=== PATIENT | female | born 1975 | race Caucasian/White ===

== ENCOUNTER 2018-08-09 12:43 | Emergency (ER) | payer BC, MEDICAID, OTHER, SELFPAY ==
[~2018-08-09] VITALS: Ht 157.5 cm; Wt 61.4 kg
[~2018-08-09 12:43] MED LIST: ATEN25TA PO; CELE20TA PO; CLON0.5T PO; IBUP600T26 PO; LYRI150C PO; MAXA5TAB10 PO; TIZA4CAP PO; TRAM300T4 PO; TRAM50TA2 PO
[2018-08-09] MEDS ORDERED: NS 1,000 ML IV SCH (12:56)
[2018-08-09] MEDS ORDERED: GABA600T4 PO (12:58)
[2018-08-09] MEDS ORDERED: DULO1CAP3 PO (12:58)
[2018-08-09] MEDS ORDERED: CLON0.5T8 PO (12:58)
[2018-08-09] MEDS ORDERED: LOSA100T50 PO (12:58)
[2018-08-09] MEDS ORDERED: TIZA4TAB4 PO (12:58)
[2018-08-09 13:27] LABS: BASO % 0.4 % (0.0-1.0); EOS % 0.1 % (0.0-3.0); HEMATOCRIT 39.6 % (36.0-47.0); HEMOGLOBIN 13.9 g/dl (12.0-15.5); LYMPH # 1.1 10^3/uL (1.5-4.5); LYMPH % 15.2 % (24.0-44.0); MEAN CORPUSCULAR HEMOGLOBIN 29.6 pg (27.0-33.0); MEAN CORPUSCULAR HGB CONC 35.1 g/dl (32.0-36.5); MEAN CORPUSCULAR VOLUME 84.4 fl (80.0-96.0); MONO # 0.3 10^3/uL (0.0-0.8); MONO % 4.2 % (0.0-5.0); NEUTROPHILS # 5.5 10^3/uL (1.8-7.7); NEUTROPHILS % 79.7 % (36.0-66.0); PLATELET COUNT, AUTOMATED 223 10^3/uL (150-450); RED BLOOD COUNT 4.69 10^6/uL (4.00-5.40); WHITE BLOOD COUNT 6.9 10^3/uL (4.0-10.0)
[2018-08-09 13:50] LABS: HCG, SERUM QUALITATIVE NEGATIVE (NEGATIVE)
[2018-08-09 14:00] LABS: ACETAMINOPHEN LEVEL < 2.0 UG/ML (10.0-30.0); ALBUMIN 4.1 GM/DL (3.2-5.2); ALT/SGPT 40 U/L (12-78); BILIRUBIN,DIRECT 0.2 MG/DL (0.0-0.2); BILIRUBIN,TOTAL 0.4 MG/DL (0.2-1.0); BLOOD UREA NITROGEN 10 MG/DL (7-18); CALCIUM LEVEL 8.9 MG/DL (8.5-10.1); CARBON DIOXIDE LEVEL 25 MEQ/L (21-32); CHLORIDE LEVEL 104 MEQ/L (98-107); CPK CREATINE PHOSPHOKINASE 91 U/L (26-192); CREATININE FOR GFR 0.71 MG/DL (0.55-1.30); ETHYL ALCOHOL (ETHANOL) 0.072 % (0.000-0.010); GLOMERULAR FILTRATION RATE > 60.0 (>58); GLUCOSE, FASTING 100 MG/DL (70-100); POTASSIUM SERUM 3.5 MEQ/L (3.5-5.1); SALICYLATE LEVEL 2.8 MG/DL (5.0-30.0); SODIUM LEVEL 138 MEQ/L (136-145); THYROID STIMULATING HORMONE 0.393 uIU/ML (0.358-3.740); TOTAL PROTEIN 7.7 GM/DL (6.4-8.2)
[2018-08-09 14:05] LABS: OSMOLALITY SERUM 303 MOSM/KG (275-295)
--- NOTE | 2018-08-09 16:23 | ECGEPIP ---
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
== END 2018-08-09 15:18 | disposition left against medical advice (07) ==
LOC: M ED 12:43
DX: F41.9 Anxiety disorder, unspecified (principal); I10 Essential (primary) hypertension; M79.7 Fibromyalgia; G43.909 Migraine, unspecified, not intractable, without status migrainosus; Z72.0 Tobacco use; Z79.899 Other long term (current) drug therapy; Z88.1 Allergy status to other antibiotic agents; Z53.21 Procedure and treatment not carried out due to patient leaving prior to being seen by health care provider
CPT/HCPCS: 80048; 80076; 82550; 83605; 83930; 84443; 84703; 85025; 93005; 93041; 94760; 99284; G0480

== ENCOUNTER 2019-06-26 12:02 | Observation (INO) | payer OTHER, SELFPAY ==
[~2019-06-26 12:02] MED LIST changes: +CLON0.5T2 PO; +DULO1CAP6 PO; +GABA600T4 PO; +LOSA100T50 PO; +TIZA4TAB4 PO
[2019-06-26] MEDS ORDERED: NS 1,000 ML IV SCH (12:16)
[2019-06-26] MEDS ORDERED: LIDOCAINE 2% 5ML JELLY UROJET TOP ONE (12:30)
[2019-06-26 12:35] LABS: BASO % 0.2 % (0.0-1.0); EOS % 0.5 % (0.0-3.0); HEMATOCRIT 38.3 % (36.0-47.0); HEMOGLOBIN 13.3 g/dl (12.0-15.5); LYMPH # 0.9 10^3/uL (1.5-5.0); LYMPH % 19.9 % (24.0-44.0); MEAN CORPUSCULAR HEMOGLOBIN 30.4 pg (27.0-33.0); MEAN CORPUSCULAR HGB CONC 34.7 g/dl (32.0-36.5); MEAN CORPUSCULAR VOLUME 87.6 fl (80.0-96.0); MONO # 0.3 10^3/uL (0.0-0.8); MONO % 7.5 % (0.0-5.0); NEUTROPHILS # 3.2 10^3/uL (1.5-8.5); NEUTROPHILS % 71.7 % (36.0-66.0); PLATELET COUNT, AUTOMATED 183 10^3/uL (150-450); RED BLOOD COUNT 4.37 10^6/uL (4.00-5.40); WHITE BLOOD COUNT 4.4 10^3/uL (4.0-10.0)
[2019-06-26 13:05] LABS: ACETAMINOPHEN LEVEL < 2.0 UG/ML (10.0-30.0); ALBUMIN 3.7 GM/DL (3.2-5.2); ALT/SGPT 32 U/L (12-78); BILIRUBIN,DIRECT 0.1 MG/DL (0.0-0.2); BILIRUBIN,TOTAL 0.3 MG/DL (0.2-1.0); BLOOD UREA NITROGEN 9 MG/DL (7-18); CALCIUM LEVEL 9.1 MG/DL (8.5-10.1); CARBON DIOXIDE LEVEL 26 MEQ/L (21-32); CHLORIDE LEVEL 109 MEQ/L (98-107); CK-MB VALUE MASS < 1.0 NG/ML (<3.6); CPK CREATINE PHOSPHOKINASE 47 U/L (26-192); CREATININE FOR GFR 0.73 MG/DL (0.55-1.30); ETHYL ALCOHOL (ETHANOL) < 0.003 % (0.000-0.010); GLOMERULAR FILTRATION RATE > 60.0 (>58); GLUCOSE, FASTING 112 MG/DL (70-100); MB/CK RELATIVE INDEX 2.13 (< OR =4); SALICYLATE LEVEL 3.3 MG/DL (5.0-30.0); SODIUM LEVEL 142 MEQ/L (136-145); THYROID STIMULATING HORMONE 0.435 uIU/ML (0.358-3.740); TROPONIN I < 0.02 NG/ML (< 0.10)
[2019-06-26 13:13] LABS: AMPHETAMINES LEVEL URINE POSITIVE (NEGATIVE); BARBITURATES URINE NEGATIVE (NEGATIVE); BENZODIAZEPINES URINE NEGATIVE (NEGATIVE); CANNABINOIDS URINE NEGATIVE (NEGATIVE); COCAINE METABOLITE URINE POSITIVE (NEGATIVE); METHADONE URINE NEGATIVE (NEGATIVE); OPIATES URINE POSITIVE (NEGATIVE); PHENCYCLIDINE URINE NEGATIVE (NEGATIVE)
--- NOTE | 2019-06-26 13:22 | REP ---
Head CT without contrast: History: Altered mental status. Comparison study: No comparison study. CT findings: Bone window settings demonstrate an intact bony calvarium. There is no evidence of skull fracture or incidental bony calvarial lesion. The visualized paranasal sinuses appear clear. No intraorbital abnormality is seen. On soft tissue window setting images; the lateral, third, and fourth ventricles are normal in size and position. Kaiser-white differentiation pattern is normal above and below the tentorium. There are is no evidence of intracranial hemorrhage. No mass, edema, infarction, or midline shift is seen. No extra-axial fluid collection is appreciated. Impression: Negative noncontrast head CT. Electronically Signed by Madi Francois MD 06/26/2019 01:13 P
[2019-06-26] MEDS ORDERED: RIZA10TA2 PO (13:35)
[2019-06-26] MEDS ORDERED: ROPI0.5T3 PO (13:35)
[2019-06-26] MEDS ORDERED: ATEN50TA2 PO (13:35)
--- NOTE | 2019-06-26 15:14 | REP ---
CHEST, SINGLE VIEW: There is no evidence of acute infiltrate. No pleural effusion is seen. The heart is normal in size. The mediastinal silhouette is unremarkable. The visualized osseous structures are intact. IMPRESSION: No acute pulmonary disease. Electronically Signed by Tristian Kaiser MD 06/26/2019 03:24 P
[2019-06-26] MEDS ORDERED: hydrALAZINE 20MG/ML 1ML VIAL (J0360 PER 20MG) IV PRN (15:30)
[2019-06-26] MEDS ORDERED: ACETAMINOPHEN TAB 650MG DOSE (2X325MG) PO PRN (15:30)
[2019-06-26] MEDS ORDERED: RIZATRIPTAN BENZOATE 10 MG TAB PO PRN (15:30)
[2019-06-26] MEDS ORDERED: traMADol 50 MG TAB PO PRN (15:30)
[2019-06-26] MEDS ORDERED: clonazePAM 0.5 MG TAB PO PRN (15:30)
--- NOTE | 2019-06-26 15:39 | HPEPDOC ---
General Date of Admission Date of Service: Jun 26, 2019 Chief Complaint The patient is a 44-year-old female admitted with a reason for visit of Neuro Symptoms. Source: Other (boyfriend) Exam Limitations: Other (, not responding to verbal stimuli) Timing/Duration: Other (since this morning) Severity: Other (, unknown) Associated Symptoms: Other (none) History of Present Illness 44 years old white female with past medical history of migraine headache, hypertension, fibromyalgia, anxiety disorder, endometriosis, depression, pneumonia, was found by her boyfriend at 9:30 laying on her living room. Patient was ambulatory after worse when EMS got there in her home and she was minimally were barely responsive. EMS but when I went to interview patient, she does not respond to vocal stimuli even though she did respond to ED, PA on his exam. History was obtained from patient's old records, patient boyfriend emergency room PA and staff. Patient is clinically stable in no apparent cardiopulmonary distress Home Medications Scheduled Atenolol (Atenolol) 50 Mg Tablet, 50 MG PO DAILY, (Reported) Duloxetine Hcl (Duloxetine HCl) 60 Mg Capsule.dr, 60 MG PO DAILY, (Reported) Gabapentin (Gabapentin) 600 Mg Tablet, 600 MG PO TID, (Reported) Ropinirole HCl (Ropinirole HCl) 0.5 Mg Tablet, 0.5 MG PO QHS, (Reported) Tizanidine HCl (Tizanidine HCl) 4 Mg Tablet, 4 MG PO TID, (Reported) Scheduled PRN Clonazepam (Clonazepam) 0.5 Mg Tablet, 1 TAB PO DAILY PRN for ANXIETY, (Reported) Rizatriptan Benzoate (Rizatriptan) 10 Mg Tablet, 1 TAB PO DAILY PRN for MIGRAINE, (Reported) Tramadol HCl (Tramadol HCl) 50 Mg Tab, 50 MG PO DAILY PRN for BACK PAIN, (Reported) Allergies Coded Allergies: celecoxib (Verified Allergy, Unknown, SOB , 08/09/18) Past Medical History Medical History Migraine headache, hypertension, fibromyalgia, anxiety disorder, depression, endometriosis, pneumonia Surgical History Laparoscopy uterine abrasion Family History Father with anxiety, hypertension, Parkinson's disease. Mother with fibromyalgia and hypertension and hypothyroid Social History * Smoker: current smoker Alcohol: other (, unknown) Drugs: other (boyfriend. Denies) A-FIB/CHADSVASC A-FIB History Current/History of A-Fib/PAF?: No Review of Systems Constitutional: Reports: Other (unable to obtained review of systems , secondary to patient's medical and mental status) Physical Examination General Exam: Positive: Other (not response to vocal stimuli, only responds to pain.) Eye Exam: Positive: PERRLA ENT Exam: Positive: Atraumatic, Mucous membr. moist/pink Neck Exam: Positive: Supple Chest Exam: Positive: Clear to auscultation, Normal air movement Heart Exam: Positive: Rate Normal, Normal S1, Normal S2 Abdomen Exam: Positive: Normal bowel sounds, Soft Extremity Exam: Positive: Normal pulses Skin Exam: Positive: Nl turgor and temperature Neuro Exam: Positive: Other (unable to do neuro exam) Psych Exam: Positive: Other (unable to do psych exam) Vital Signs Vital Signs Date Time Temp Pulse Resp B/P (MAP) Pulse Ox O2 Delivery O2 Flow Rate FiO2 06/26/19 15:00 97.0 62 18 111/60 (77) 95 Room Air Laboratory Data Labs 24H Laboratory Tests 2 06/26/19 12:15: Immature Granulocyte % (Auto) 0.2, Neutrophils (%) (Auto) 71.7H, Lymphocytes (%) (Auto) 19.9L, Monocytes (%) (Auto) 7.5H, Eosinophils (%) (Auto) 0.5, Basophils (%) (Auto) 0.2, Neutrophils # (Auto) 3.2, Lymphocytes # (Auto) 0.9L, Monocytes # (Auto) 0.3, Eosinophils # (Auto) 0.0, Basophils # (Auto) 0.0, Nucleated Red Blood Cells % (auto) 0.0, Anion Gap 7L, Glomerular Filtration Rate > 60.0, Lactic Acid Level 0.9, Calcium Level 9.1, Total Bilirubin 0.3, Direct Bilirubin 0.1, Aspartate Amino Transf (AST/SGOT) 19, Alanine Aminotransferase (ALT/SGPT) 32, Alkaline Phosphatase 72, Ammonia < 10, Total Creatine Kinase 47, Creatine Kinase MB < 1.0, Creatine Kinase MB Relative Index 2.13, Troponin I < 0.02, Tot al Protein 7.0, Albumin 3.7, Albumin/Globulin Ratio 1.12, Thyroid Stimulating Hormone (TSH) 0.435, Salicylates Level 3.3L, Acetaminophen Level < 2.0L, Ethyl Alcohol Level < 0.003 06/26/19 12:32: Urine Color YELLOW, Urine Appearance HAZY, Urine pH 5.0, Urine Specific [place] 1.025, Urine Protein NEGATIVE, Urine Glucose (UA) NEGATIVE, Urine Ketones TRACEH, Urine Blood 1+H, Urine Nitrite NEGATIVE, Urine Bilirubin NEGATIVE, Urine Urobilinogen 0.2, Urine Leukocyte Esterase NEGATIVE, Urine WBC (Auto) 3, Urine RBC (Auto) 11H, Urine Hyaline Casts (Auto) 0, Urine Bacteria (Auto) NEGATIVE, Urine Squamous Epithelial Cells 5, Urine Mucus (Auto) LARGE, Urine Sperm (Auto) , Urine Opiates Screen POSITIVEH, Urine Methadone Screen NEGATIVE, Urine Barbiturates Screen NEGATIVE, Urine Phencyclidine Screen NEGATIVE, Urine Amphetamines Screen POSITIVEH, Urine Benzodiazepines Screen NEGATIVE, Urine Cocaine Metabolite Screen POSITIVEH, Urine Cannabinoids Screen NEGATIVE CBC/BMP Laboratory Tests 06/26/19 12:15 Problems (1) Altered mental state Status: Acute Problem Text: 44 years old white female with a history of multiple psych ailments along with hypertension, back pain, migraine headache, frequent visits to ED with a psych complaints presented with altered mental status today. Patient has a variable clinical course. She hasn't spoken with the EMS and ED, PA, but she did not speak to me on local stimuli and at home. She was also found by EMS. She was ambulating Patient's vital signs are stable except blood pressure is 191/103, urine analysis is negative. Urine tox shows positive for opiates, amphetamine and cocaine CT of the brain is essentially negative. Chest x-ray is negative. CBC, CMP are normal Patient's altered mental status most likely secondary to polysubstance abuse versus malingering for secondary gain Admit patient to PCU for close observation property assessment monitor IV fluid normal saline 100 mL per hour Seizure precautions Neuro check every 4 hours for 24 hours Repeat labs in a.m. Nothing by mouth Continue home meds Will reevaluate patient in them a.m. and if anything was further neurological workup needed. We will order then Discussed with boyfriend at home. Patient's prognosis and management was explained to (2) Hypertensive urgency Status: Acute Problem Text: Most likely secondary to polysubstance abuse, which include opiates, amphetamine and cocaine Will request EKG, troponins 3 Continue by mouth home meds Hydralazine 10 mg IV every 6 hours when necessary for systolic blood pressure mo re than 150 Continue home meds (3) Drug abuse Status: Acute Problem Text: Patient's boyfriend was surprised that she uses any drugs, but urine tox is positive for opiate, amphetamine and cocaine Will ip counsel patient about drug abuse, but she is awake, alert and oriented 3 Plan / VTE VTE Prophylaxis Ordered?: Yes MYLENE PEREZ MD Jun 26, 2019 15:39
[2019-06-26 16:45] VITALS: BP 161/69
[2019-06-26] MEDS: NS 1,000 ML IV SCH (17:43)
[2019-06-26] MEDS: GABAPENTIN 300 MG CAP PO SCH ×2 (17:44→20:06)
[2019-06-26] MEDS: tiZANidine 4 MG TAB PO SCH ×2 (17:44→20:06)
[2019-06-26] MEDS: DULoxetine 30 MG CAP (CYMBALTA) PO SCH (17:44)
[2019-06-26 20:00] VITALS: BP 170/80
[2019-06-26] MEDS: rOPINIRole 0.25 MG TAB(REQUIP) PO SCH (20:06)
[2019-06-26 21:40] VITALS: BP 200/110
[2019-06-26 22:15] VITALS: BP 171/80
[2019-06-26 22:30] VITALS: BP 155/87
[2019-06-26 22:44] LABS: ABG BASE EXCESS -2.2 (-2.0-2.0); ABG HCO3 19.8 MEQ/L (22.0-26.0); ABG O2 SATURATION 98.4 % (95.0-99.0); ABG PARTIAL PRESSURE CO2 26.4 mmHg (35.0-45.0); ABG PARTIAL PRESSURE O2 98.6 mmHg (75.0-100.0); ABG STANDARD HCO3 22.6 MEQ/L (22.0-26.0); ABG TOTAL CO2 20.6 MEQ/L (22.0-29.0); ABG pH (ARTERIAL) 7.492 UNITS (7.350-7.450)
[2019-06-27] VITALS (12 sets, daily range): BP systolic 136–188; BP diastolic 73–104
[2019-06-27] MEDS: NS 1,000 ML IV SCH (02:32)
[2019-06-27] MEDS ORDERED: hydrALAZINE 20MG/ML 1ML VIAL (J0360 PER 20MG) IV PRN (03:30)
[2019-06-27] MEDS ORDERED: hydrALAZINE 20MG/ML 1ML VIAL (J0360 PER 20MG) IV SCH (05:00)
[2019-06-27] MEDS: tiZANidine 4 MG TAB PO SCH ×3 (08:06→20:47)
[2019-06-27] MEDS: atenoloL 50 MG TAB PO SCH (08:06)
[2019-06-27] MEDS: ENOXAPARIN 40MG/0.4ML SYRINGE (J1650 PER 10MG) SC SCH (08:07)
[2019-06-27] MEDS: DULoxetine 30 MG CAP (CYMBALTA) PO SCH (08:07)
[2019-06-27] MEDS: GABAPENTIN 300 MG CAP PO SCH ×3 (08:07→20:47)
[2019-06-27] MEDS ORDERED: PILL CUTTER 1 EACH XX PRN (10:45)
[2019-06-27] MEDS ORDERED: SLF 3 ML SYR IV PRN (11:15)
--- NOTE | 2019-06-27 11:39 | IPNPDOC ---
Subjective Date Seen The patient was seen on 06/27/19. Subjective Chief Complaint/HPI Patient is awake, alert, oriented 3, she is very upset, crying that she had used drugs and was unable to take care of her children General: Denies: ROS Unobtainable, Chills, Night Sweats, Fatigue, Malaise, Normal Appetite, Other Symptoms Constitutional: Denies: Chills, Fever, Malaise, Night Sweats, Weakness, Fatigue, Weight Loss, Lethargy, Other Pulmonary: Denies: Dyspnea, Cough, Pleuritic Chest Pain, Other Symptoms Cardiovascular: Denies: Chest Pain, Palpitations, Orthopnea, Paroxysmal Noc. Dyspnea, Edema, Lt Headedness, Other Symptoms Gastrointestinal: Denies: Nausea, Vomiting, Abdominal Pain, Diarrhea, Constipation, Melena, Hematochezia, Other Symptoms Musculoskeletal: Denies: Neck Pain, Back Pain, Shoulder Pain, Arm Pain, Hand Pain, Leg Pain, Foot Pain, Joint Pain, Muscle Pain, Spasms, Other Symptoms Neurological: Denies: Weakness, Numbness, Incoordination, Change in speech, Confusion, Seizures, Other Symptoms Objective Physical Examination General Exam: Positive: Other (not response to vocal stimuli, only responds to pain.) Eye Exam: Positive: PERRLA ENT Exam: Positive: Atraumatic, Mucous membr. moist/pink Neck Exam: Positive: Supple Chest Exam: Positive: Clear to auscultation, Normal air movement Heart Exam: Positive: Rate Normal, Normal S1, Normal S2 Abdomen Exam: Positive: Normal bowel sounds, Soft Extremity Exam: Positive: Normal pulses Skin Exam: Positive: Nl turgor and temperature Neuro Exam: Positive: Other (unable to do neuro exam) Psych Exam: Positive: Other (unable to do psych exam) Assessment /Plan Problems (1) Altered mental state Status: Resolved Problem Text: Altered mental status most likely secondary to polysubstance abuse Patient is awake, alert, oriented 3 in no apparent distress Will monitor patient. Once the her blood pressure is under control. She can be discharged home Discussed with social work, we will provide information to patient regarding enrollment outpatient drug rehabilitation programs (2) Hypertensive urgency Status: Acute Problem Text: Most likely secondary to noncompliance with her meds and use of street drugs Blood pressure is improving. Once the atenolol was started and she also has been started on a by mouth hydralazine when necessary for systolic blood pressure more than 150 Once patient. Blood pressures under control. She will be discharged home (3) Drug abuse Status: Chronic Problem Text: Extensive counseling regarding drug abuse at the bedside done. She understands very well and willing to enroll in outpatient drug rehabilitation program Information will be provided by social work Plan/VTE VTE Prophylaxis Ordered?: Yes VS, I&O, 24H, Fishbone Vital Signs/I&O Vital Signs Date Time Temp Pulse Resp B/P (MAP) Pulse Ox O2 Delivery O2 Flow Rate FiO2 06/27/19 08:06 76 166/84 06/27/19 07:57 97.0 18 98 Room Air I&O- Last 24 Hours up to 6 AM 06/27/19 06:00 Intake Total 2200 ml Output Total 1475 ml Balance 725 ml Laboratory Data 24H LABS Laboratory Tests 2 06/26/19 12:15: Immature Granulocyte % (Auto) 0.2, Neutrophils (%) (Auto) 71.7H, Lymphocytes (%) (Auto) 19.9L, Monocytes (%) (Auto) 7.5H, Eosinophils (%) (Auto) 0.5, Basophils (%) (Auto) 0.2, Neutrophils # (Auto) 3.2, Lymphocytes # (Auto) 0.9L, Monocytes # (Auto) 0.3, Eosinophils # (Auto) 0.0, Basophils # (Auto) 0.0, Nucleated Red Blood Cells % (auto) 0.0, Anion Gap 7L, Glomerular Filtration Rate > 60.0, Lactic Acid Level 0.9, Calcium Level 9.1, Total Bilirubin 0.3, Direct Bilirubin 0.1, Aspartate Amino Transf (AST/SGOT) 19, Alanine Aminotransferase (ALT/SGPT) 32, Alkaline Phosphatase 72, Ammonia < 10, Total Creatine Kinase 47, Creatine Kinase MB < 1.0, Creatine Kinase MB Relative Index 2.13, Troponin I < 0.02, Total Protein 7.0, Albumin 3.7, Albumin/Globulin Ratio 1.12, Thyroid Stimulating Hormone (TSH) 0.435, Salicylates Level 3.3L, Acetaminophen Level < 2.0L, Ethyl Alcohol Level < 0.003 06/26/19 12:32: Urine Color YELLOW, Urine Appearance HAZY, Urine pH 5.0, Urine Specific [place] 1.025, Urine Protein NEGATIVE, Urine Glucose (UA) NEGATIVE, Urine Ketones TRACEH, Urine Blood 1+H, Urine Nitrite NEGATIVE, Urine Bilirubin NEGATIVE, Urine Urobilinogen 0.2, Urine Leukocyte Esterase NEGATIVE, Urine WBC (Auto) 3, Urine RBC (Auto) 11H, Urine Hyaline Casts (Auto) 0, Urine Bacteria (Auto) NEGATIVE, Urine Squamous Epithelial Cells 5, Urine Mucus (Auto) LARGE, Urine Sperm (Auto) , Urine Opiates Screen POSITIVEH, Urine Methadone Screen NEGATIVE, Urine Barbiturates Screen NEGATIVE, Urine Phencyclidine Screen NEGATIVE, Urine Amphetamines Screen POSITIVEH, Urine Benzodiazepines Screen NEGATIVE, Urine Coca ine Metabolite Screen POSITIVEH, Urine Cannabinoids Screen NEGATIVE 06/26/19 22:35: Blood Gas Bicarbonate Standard 22.6, Arterial Blood pH 7.492H, Arterial Blood Partial Pressure CO2 26.4L, Arterial Blood Partial Pressure O2 98.6, Arterial Blood Total CO2 20.6L, Arterial Blood HCO3 19.8L, Arterial Blood Base Excess - 2.2L, Arterial Blood Oxygen Saturation 98.4 CBC/BMP Laboratory Tests 06/26/19 12:15 MYLENE PEREZ MD Jun 27, 2019 11:39
[2019-06-27] MEDS: **hydrALAZINE** 10 MG TAB PO PRN ×2 (12:26→20:48)
[2019-06-27] MEDS: SLF 3 ML SYR IV SCH ×2 (13:54→22:22)
--- NOTE | 2019-06-27 16:36 | ECGEPIP ---
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
[2019-06-27] MEDS: rOPINIRole 0.25 MG TAB(REQUIP) PO SCH (20:47)
[2019-06-28] VITALS: BP 142/92
[2019-06-28 04:00] VITALS: BP 178/96
[2019-06-28] MEDS: SLF 3 ML SYR IV SCH (04:13)
[2019-06-28] MEDS: **hydrALAZINE** 10 MG TAB PO PRN (04:13)
[2019-06-28 06:37] LABS: BASO % 0.4 % (0.0-1.0); EOS % 0.6 % (0.0-3.0); HEMATOCRIT 36.8 % (36.0-47.0); HEMOGLOBIN 12.7 g/dl (12.0-15.5); LYMPH % 19.4 % (24.0-44.0); MEAN CORPUSCULAR HEMOGLOBIN 29.9 pg (27.0-33.0); MEAN CORPUSCULAR HGB CONC 34.5 g/dl (32.0-36.5); MEAN CORPUSCULAR VOLUME 86.6 fl (80.0-96.0); MONO # 0.4 10^3/uL (0.0-0.8); MONO % 7.4 % (0.0-5.0); NEUTROPHILS # 3.9 10^3/uL (1.5-8.5); PLATELET COUNT, AUTOMATED 184 10^3/uL (150-450); RED BLOOD COUNT 4.25 10^6/uL (4.00-5.40); WHITE BLOOD COUNT 5.4 10^3/uL (4.0-10.0)
[2019-06-28 07:17] LABS: ALBUMIN 3.6 GM/DL (3.2-5.2); ALT/SGPT 35 U/L (12-78); BILIRUBIN,TOTAL 0.6 MG/DL (0.2-1.0); BLOOD UREA NITROGEN 7 MG/DL (7-18); CALCIUM LEVEL 9.4 MG/DL (8.5-10.1); CARBON DIOXIDE LEVEL 24 MEQ/L (21-32); CHLORIDE LEVEL 105 MEQ/L (98-107); CREATININE FOR GFR 0.73 MG/DL (0.55-1.30); GLOMERULAR FILTRATION RATE > 60.0 (>58); GLUCOSE, FASTING 102 MG/DL (70-100); POTASSIUM SERUM 3.5 MEQ/L (3.5-5.1); SODIUM LEVEL 136 MEQ/L (136-145)
[2019-06-28 07:40] VITALS: BP 172/102
[2019-06-28 07:53] VITALS: BP 172/102
[2019-06-28] MEDS: tiZANidine 4 MG TAB PO SCH (07:53)
[2019-06-28] MEDS: atenoloL 50 MG TAB PO SCH (07:53)
[2019-06-28] MEDS: DULoxetine 30 MG CAP (CYMBALTA) PO SCH (07:53)
[2019-06-28] MEDS: GABAPENTIN 300 MG CAP PO SCH (07:53)
[2019-06-28] MEDS: ENOXAPARIN 40MG/0.4ML SYRINGE (J1650 PER 10MG) SC SCH (07:54)
[2019-06-28 08:46] VITALS: BP 168/98
[2019-06-28] MEDS ORDERED: amLODIPine 5 MG TAB PO SCH (09:00)
[2019-06-28] MEDS ORDERED: AMLO5TAB6 PO (09:58)
--- NOTE | 2019-06-28 11:23 | DS.PDOC ---
Discharge Summary General Date of Admission Jun 26, 2019 at 12:03 Date of Discharge 06/28/19 Discharge Summary PROCEDURES PERFORMED DURING STAY: None. ADMITTING DIAGNOSES: 1. Polysubstance abuse. Altered mental status. DISCHARGE DIAGNOSES: 1. Altered mental status secondary to polysubstance abuse, uncontrolled hypertension. COMPLICATIONS/CHIEF COMPLAINT: Altered Mental Status. HISTORY OF PRESENT ILLNESS: 44 years old white female with past medical history of migraine headache, hypertension, fibromyalgia, anxiety disorder, endometriosis, depression, pneumonia, was found by her boyfriend at 9:30 laying on her living room. Patient was ambulatory after worse when EMS got there in her home and she was minimally were barely responsive. EMS but when I went to interview patient, she does not respond to vocal stimuli even though she did respond to ED, PA on his exam. History was obtained from patient's old records, patient boyfriend emergency room PA and staff. Patient is clinically stable in no apparent cardiopulmonary distress. HOSPITAL COURSE: Patient was admitted with altered mental status secondary to polysubstance abuse. Patient had a basic workup done in ED including CT of the head which were all essentially negative. Patient initially was monitored on telemetry and placed in PCU and kept nothing by mouth the next morning she became alert, oriented 3. No hyper-distress. Patient's IV fluids were discontinued and she was started on feeding so far her all her blood work came out negative. She is active, ambulatory, and she agreed to go to drug rehabilitation as an outpatient for which social work has provided her with all the information. Patient hypertension, Clement a challenge. She was continue her on her atenolol 50 mg by mouth daily and also Norvasc was added 5 mg daily. Today her baseline blood pressure right now is 160, but she can be discharged home on to medication and follow with her PCP in one week. Extensive counseling regarding abstinence from drugs which can cause cardiopulmonary symptoms and emergent hypertension, such as amphetamine and cocaine were explained to her and she understands very well. DISCHARGE MEDICATIONS: Please see below. ALLERGIES: Please see below. PHYSICAL EXAMINATION ON DISCHARGE: VITAL SIGNS: Please see below. GENERAL: Within normal limits HEENT: [place] extraocular muscles intact NECK: Supple CARDIOVASCULAR EXAMINATION: S1, S2, regular RESPIRATORY EXAMINATION: Clear to A&P ABDOMINAL EXAMINATION: , Soft, nontender, bowel sounds present EXTREMITIES: No clubbing, cyanosis, edema SKIN: Normal NEUROLOGICAL EXAMINATION: . No focal motor sensory deficit PSYCHIATRIC EXAMINATION: Normal LABORATORY DATA: Please see below. IMAGING: CT head: Normal PROGNOSIS: Good ACTIVITY: As tolerated. DIET: As tolerated DISCHARGE PLAN: Follow-up with PCP in one week DISPOSITION: . Home DISCHARGE INSTRUCTIONS: 1. As per discharge instructions. ITEMS TO FOLLOWUP ON ON OUTPATIENT: 1. Follow-up with PCP in one week. DISCHARGE CONDITION: Stable. TIME SPENT ON DISCHARGE: 28 minutes. Vital Signs/I&Os Vital Signs Date Time Temp Pulse Resp B/P (MAP) Pulse Ox O2 Delivery O2 Flow Rate FiO2 06/28/19 08:46 168/98 (121) 06/28/19 07:53 82 06/28/19 07:40 97.0 18 97 Room Air I&O- Last 24 Hours up to 6 AM 06/28/19 06:00 Intake Total 1260 ml Output Total 1075 ml Balance 185 ml Laboratory Data Labs 24H Laboratory Tests 2 06/27/19 12:01: Magnesium Level 2.0 06/28/19 06:03: Immature Granulocyte % (Auto) 0.2, Neutrophils (%) (Auto) 72.0H, Lymphocytes (%) (Auto) 19.4L, Monocytes (%) (Auto) 7.4H, Eosinophils (%) (Auto) 0.6, Basophils (%) (Auto) 0.4, Neutrophils # (Auto) 3.9, Lymphocytes # (Auto) 1.0L, Monocytes # (Auto) 0.4, Eosinophils # (Auto) 0.0, Basophils # (Auto) 0.0, Nucleated Red Blood Cells % (auto) 0.0, Anion Gap 7L, Glomerular Filtration Rate > 60.0, Calcium Level 9.4, Total Bilirubin 0.6#, Aspartate Amino Transf (AST/SGOT) 31, Alanine Aminotransferase (ALT/SGPT) 35, Alkaline Phosphatase 67, Total Protein 7.0, Albumin 3.6, Albumin/Globulin Ratio 1.06 CBC/BMP Laboratory Tests 06/28/19 06:03 Discharge Medications Scheduled Amlodipine Besylate (Amlodipine Besylate) 5 Mg Tablet, 5 MG PO DAILY Atenolol (Atenolol) 50 Mg Tablet, 50 MG PO DAILY, (Reported) Duloxetine Hcl (Duloxetine HCl) 60 Mg Capsule.dr, 60 MG PO DAILY, (Reported) Gabapentin (Gabapentin) 600 Mg Tablet, 600 MG PO TID, (Reported) Ropinirole HCl (Ropinirole HCl) 0.5 Mg Tablet, 0.5 MG PO QHS, (Reported) Tizanidine HCl (Tizanidine HCl) 4 Mg Tablet, 4 MG PO TID, (Reported) Scheduled PRN Clonazepam (Clonazepam) 0.5 Mg Tablet, 1 TAB PO DAILY PRN for ANXIETY, (Reported) Rizatriptan Benzoate (Rizatriptan) 10 Mg Tablet, 1 TAB PO DAILY PRN for MIGRAINE, (Reported) Tramadol HCl (Tramadol HCl) 50 Mg Tab, 50 MG PO DAILY PRN for BACK PAIN, (Reported) Allergies Coded Allergies: celecoxib (Verified Allergy, Unknown, SOB , 08/09/18) MYLENE PEREZ MD Jun 28, 2019 11:23
== END 2019-06-28 11:25 | disposition home or self-care (01) ==
LOC: M ED 12:02 → EDBD 12:02 → M PCU 12:03 → ENRESERV 16:13 → M ED 16:51
PROVIDERS: ADMIT Internal Medicine; ATTEND Internal Medicine
DX: F19.10 Other psychoactive substance abuse, uncomplicated (principal); R41.82 Altered mental status, unspecified; I16.0 Hypertensive urgency; F41.9 Anxiety disorder, unspecified; G43.909 Migraine, unspecified, not intractable, without status migrainosus; M79.7 Fibromyalgia; F32.9 Major depressive disorder, single episode, unspecified; N80.9 Endometriosis, unspecified; Z79.899 Other long term (current) drug therapy; Z88.8 Allergy status to other drugs, medicaments and biological substances; F17.200 Nicotine dependence, unspecified, uncomplicated
CPT/HCPCS: 36415; 36600; 51702; 70450; 71045; 80048; 80053; 80076; 80307; 81001; 82140; 82550; 82553; 82803; 83605; 83735; 84443; 85025; 93005; 93041; 94760; 96361; 96372; 96374; 96376; 97161; 97530; 99285; G0480; J0360; J1650

== ENCOUNTER 2020-01-25 19:41 | Emergency (ER) | payer OTHER ==
[~2020-01-25] VITALS: Ht 157.5 cm; Wt 67.0 kg
[~2020-01-25 19:41] MED LIST changes: +AMLO1TAB24 PO; +ATEN50TA2 PO; +RIZA10TA2 PO; +ROPI0.5T3 PO
[2020-01-25] MEDS ORDERED: NS 1,000 ML IV ONE (19:45)
[2020-01-25] MEDS ORDERED: NALOXONE 2MG/2ML SYRINGE (J2310 PER 1MG) IV ONE (19:45)
[2020-01-25] MEDS ORDERED: ONDANSETRON 4MG/2ML VIAL IV ONE (19:45)
[2020-01-25 20:16] LABS: BASO % 0.4 % (0.0-1.0); EOS # 0.1 10^3/uL (0.0-0.5); EOS % 0.5 % (0.0-3.0); HEMATOCRIT 39.5 % (36.0-47.0); HEMOGLOBIN 13.2 g/dl (12.0-15.5); MEAN CORPUSCULAR HEMOGLOBIN 29.9 pg (27.0-33.0); MEAN CORPUSCULAR HGB CONC 33.4 g/dl (32.0-36.5); MEAN CORPUSCULAR VOLUME 89.6 fl (80.0-96.0); MONO # 0.5 10^3/uL (0.0-0.8); MONO % 4.6 % (0.0-5.0); NEUTROPHILS # 8.2 10^3/uL (1.5-8.5); NEUTROPHILS % 84.3 % (36.0-66.0); PLATELET COUNT, AUTOMATED 171 10^3/uL (150-450); RED BLOOD COUNT 4.41 10^6/uL (4.00-5.40); WHITE BLOOD COUNT 9.7 10^3/uL (4.0-10.0)
[2020-01-25] MEDS ORDERED: LORazepam 2 MG/ML VIAL IV STA ×2 (20:19→20:55)
[2020-01-25 20:32] LABS: VENOUS HCO3 19.7 MEQ/L (23.0-27.0); VENOUS O2 SATURATION 95.4 % (60.0-80.0); VENOUS PARTIAL PRESSURE CO2 35.6 mmHg (38.0-50.0); VENOUS PARTIAL PRESSURE O2 77.6 mmHg (30.0-50.0); VENOUS STANDARD HCO3 20.3 MEQ/L; VENOUS TOTAL CO2 20.8 MEQ/L (24.0-28.0)
[2020-01-25 20:44] LABS: AMPHETAMINES LEVEL URINE NEGATIVE (NEGATIVE); BARBITURATES URINE NEGATIVE (NEGATIVE); BENZODIAZEPINES URINE NEGATIVE (NEGATIVE); CANNABINOIDS URINE NEGATIVE (NEGATIVE); COCAINE METABOLITE URINE NEGATIVE (NEGATIVE); METHADONE URINE NEGATIVE (NEGATIVE); OPIATES URINE POSITIVE (NEGATIVE); PHENCYCLIDINE URINE NEGATIVE (NEGATIVE)
[2020-01-25 20:56] LABS: ALBUMIN 4.4 GM/DL (3.2-5.2); ALT/SGPT 41 U/L (12-78); BILIRUBIN,DIRECT 0.2 MG/DL (0.0-0.2); BILIRUBIN,TOTAL 0.5 MG/DL (0.2-1.0); BLOOD UREA NITROGEN 11 MG/DL (7-18); CALCIUM LEVEL 9.4 MG/DL (8.5-10.1); CARBON DIOXIDE LEVEL 20 MEQ/L (21-32); CHLORIDE LEVEL 113 MEQ/L (98-107); CPK CREATINE PHOSPHOKINASE 106 U/L (26-192); CREATININE FOR GFR 0.84 MG/DL (0.55-1.30); GLOMERULAR FILTRATION RATE > 60.0 (>58); GLUCOSE, FASTING 156 MG/DL (70-100); SODIUM LEVEL 141 MEQ/L (136-145); THYROID STIMULATING HORMONE 0.646 uIU/ML (0.358-3.740); TOTAL PROTEIN 7.6 GM/DL (6.4-8.2)
[2020-01-25 20:57] LABS: ACETAMINOPHEN LEVEL < 2.0 UG/ML (10.0-30.0); ETHYL ALCOHOL (ETHANOL) < 0.003 % (0.000-0.010)
[2020-01-25 21:13] LABS: HCG, SERUM QUALITATIVE NEGATIVE (NEGATIVE)
[2020-01-25] MEDS ORDERED: diphenhydrAMINE 50MG/ML VIAL (J1200) IV STA (21:13)
--- NOTE | 2020-01-25 22:29 | REPVR ---
PROCEDURE INFORMATION: Exam: CT Head Without Contrast Exam date and time: 01/25/2020 10:02 PM Age: 45 years old Clinical indication: Altered mental status/memory loss; Confusion or disorientation; Additional info: Bizzare behavior TECHNIQUE: Imaging protocol: Computed tomography of the head without contrast. Radiation optimization: All CT scans at this facility use at least one of these dose optimization techniques: automated exposure control; mA and/or kV adjustment per patient size (includes targeted exams where dose is matched to clinical indication); or iterative reconstruction. COMPARISON: CT Head without contrast 06/26/2019 12:56 PM FINDINGS: Brain: Normal. No hemorrhage. Unremarkable white matter. No mass effect. Cerebral ventricles: No ventriculomegaly. Bones/joints: Unremarkable. No acute fracture. Paranasal sinuses: Visualized sinuses are unremarkable. No fluid levels. Mastoid air cells: Visualized mastoid air cells are well aerated. Soft tissues: Unremarkable. IMPRESSION: Negative noncontrast head CT which is unchanged from 06/26/2019. Electronically signed by: Khoa Yuan On 01/25/2020 22:29:02 PM
[2020-01-25] MEDS ORDERED: LABETALOL 100MG/20ML VIAL IV STA (23:20)
[2020-01-26 00:15] VITALS: BP 131/71
--- NOTE | 2020-01-26 07:41 | ECGEPIP ---
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
== END 2020-01-26 00:55 | disposition home or self-care (01) ==
LOC: M ED 19:41
DX: G24.01 Drug induced subacute dyskinesia (principal); F11.129 Opioid abuse with intoxication, unspecified; R94.31 Abnormal electrocardiogram [ECG] [EKG]; G43.909 Migraine, unspecified, not intractable, without status migrainosus; I10 Essential (primary) hypertension; F17.200 Nicotine dependence, unspecified, uncomplicated; Z79.899 Other long term (current) drug therapy
CPT/HCPCS: 70450; 80048; 80076; 80307; 82550; 82803; 84443; 84703; 85025; 93005; 93041; 94760; 96361; 96374; 96375; 96376; 99285; G0480; J1200; J2060; J2310; J2405

== ENCOUNTER → 2020-04-08 | Outpatient (REF) | payer OTHER ==
[2020-04-08 18:17] LABS: BASO % 0.6 % (0.0-1.0); EOS # 0.2 10^3/uL (0.0-0.5); EOS % 3.5 % (0.0-3.0); HEMATOCRIT 42.8 % (36.0-47.0); HEMOGLOBIN 14.4 g/dl (12.0-15.5); LYMPH # 1.4 10^3/uL (1.5-5.0); LYMPH % 21.3 % (24.0-44.0); MEAN CORPUSCULAR HEMOGLOBIN 31.6 pg (27.0-33.0); MEAN CORPUSCULAR HGB CONC 33.6 g/dl (32.0-36.5); MEAN CORPUSCULAR VOLUME 94.1 fl (80.0-96.0); MONO # 0.4 10^3/uL (0.0-0.8); MONO % 6.3 % (0.0-5.0); NEUTROPHILS # 4.5 10^3/uL (1.5-8.5); PLATELET COUNT, AUTOMATED 224 10^3/uL (150-450); RED BLOOD COUNT 4.55 10^6/uL (4.00-5.40); WHITE BLOOD COUNT 6.5 10^3/uL (4.0-10.0)
[2020-04-08 18:44] LABS: ALT/SGPT 26 U/L (12-78); BILIRUBIN,TOTAL 0.5 MG/DL (0.2-1.0); BLOOD UREA NITROGEN 12 MG/DL (7-18); CALCIUM LEVEL 9.2 MG/DL (8.5-10.1); CARBON DIOXIDE LEVEL 26 MEQ/L (21-32); CHLORIDE LEVEL 105 MEQ/L (98-107); CREATININE FOR GFR 0.96 MG/DL (0.55-1.30); GLOMERULAR FILTRATION RATE > 60.0 (>58); GLUCOSE, FASTING 85 MG/DL (70-100); LIPASE 99 U/L (73-393); SODIUM LEVEL 139 MEQ/L (136-145); TOTAL PROTEIN 7.2 GM/DL (6.4-8.2)
[2020-04-08 19:10] LABS: ERYTHROCYTE SEDIMENTATION RATE 6 mm/hr (0-20)
== END ==
LOC: M SFHCPLAZ 15:37
PROVIDERS: ATTEND Physician Assistant
DX: R10.84 Generalized abdominal pain (principal); R14.0 Abdominal distension (gaseous); K59.00 Constipation, unspecified

== ENCOUNTER → 2020-04-08 | Outpatient (CLI) | payer OTHER ==
--- NOTE | 2020-04-09 04:02 | REPPI ---
INDICATION: ABD PAIN COMPARISON: None. TECHNIQUE: Supine view of the abdomen and pelvis. FINDINGS: Significant fecal stasis noted without obstruction or perforation. No organomegaly. No significant foreign body. Skeletal structures intact. No obvious abnormal calcifications. IMPRESSION: Fecal stasis. <Electronically signed by Sridhar Grace > 04/09/20 [id number]
== END ==
LOC: M PLAIMG 15:36
PROVIDERS: ATTEND Physician Assistant
DX: R10.84 Generalized abdominal pain (principal)

== ENCOUNTER → 2020-04-28 | Outpatient (REF) | payer OTHER ==
[2020-04-28 16:23] LABS: HEPATITIS B SURFACE ANTIBODY NEGATIVE (POSITIVE); HEPATITIS B SURFACE ANTIGEN NEGATIVE (NEGATIVE)
== END ==
LOC: M SFHCPLAZ 12:12
PROVIDERS: ATTEND Internal Medicine Infectious Disease
DX: B18.2 Chronic viral hepatitis C (principal)

== ENCOUNTER → 2020-05-02 | Outpatient (REF) ==
[2020-05-02 19:28] LABS: INFLUENZA A AMPLIFICATION NEGATIVE (NEGATIVE); INFLUENZA B AMPLIFICATION NEGATIVE (NEGATIVE)
== END ==
LOC: M LAB 09:33
DX: Z02.89 Encounter for other administrative examinations (principal)